=== PATIENT | male | born 1960 | race American Indian/Alaskan Native ===

== ENCOUNTER 2021-08-29 20:16 | Emergency (ER) | payer SELFPAY ==
--- NOTE | 2021-08-29 22:05 | XRay Report ---
LEFT FOOT 3 VIEW(S) INDICATION / CLINICAL INFORMATION: injury a part from a machine fell on his left foot about 3 this af ternoon... foot swollen and purple COMPARISON: None available. FINDINGS: BONES / JOINT(S): Mildly displaced transverse fracture of the midshaft of the 1st metatarsal. Possibl e tiny nondisplaced fracture of the ulnar aspect of the base of the distal phalanx of the great toe. SOFT TISSUES: Moderate soft tissue swelling over the metatarsals. ADDITIONAL FINDINGS: None. IMPRESSION: 1. 1st metatarsal fracture. Possible nondisplaced fracture of the distal phalanx of the great toe. Signer Name: Donnie Aguirre MD Signed: 08/29/2021 10:00 PM Workstation Name: [id number]
[2021-08-30 02:37] VITALS: BP 142/85
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
[2021-08-30] MEDS ORDERED: oxyCODONE /ACETAMINOPHEN 5-325MG TAB PO ONE (02:46)
[2021-08-30] MEDS ORDERED: IBUPROFEN 600 MG TAB PO ONE (02:46)
[2021-08-30] MEDS ORDERED: ONDANSETRON 4 MG ODT TAB PO ONE (02:46)
== END 2021-08-30 07:08 | disposition home or self-care (01) ==
LOC: ED 20:16
DX: S92.402A Displaced unspecified fracture of left great toe, initial encounter for closed fracture (principal); S90.112A Contusion of left great toe without damage to nail, initial encounter; Z98.890 Other specified postprocedural states; X58.XXXA Exposure to other specified factors, initial encounter; Y93.89 Activity, other specified; Y92.89 Other specified places as the place of occurrence of the external cause; Y99.8 Other external cause status
CPT/HCPCS: 99283; J3490; Q0162